=== PATIENT | male | born 1980 | race Caucasian/White ===

== ENCOUNTER 2016-11-03 14:47 | Emergency (ER) | payer BC ==
[2016-11-03 16:18] LABS: Hematocrit 49 % (42-52); Hemoglobin 16.7 g/dl (14.0-18.0); Mean Corpuscular HGB Conc 34 g/dl (31-36); Mean Corpuscular Hemoglobin 30 pg (27-31); Mean Corpuscular Volume 89 fL (80-94); Mean Platelet Volume 9 um3 (7.4-10.4); Red Cell Distribution Width 14 % (10.5-15); White Blood Count 6.2 10^3/ul (3.5-10.8)
[2016-11-03 16:33] LABS: Albumin 4.7 g/dL (3.2-5.2); BUN/Creatinine Ratio 15.6 (8-20); Calcium 10.2 mg/dL (8.6-10.3); EGFR African American 82.7 (>60); EGFR Non-African American 64.3 (>60); Magnesium 2.2 mg/dL (1.9-2.7); Total Bilirubin 0.4 mg/dL (0.2-1.0); Total Protein 7.7 g/dL (6.4-8.9)
[2016-11-03 16:36] LABS: Potassium 4.3 mmol/L (3.5-5.0)
--- NOTE | 2016-11-03 16:49 | RAD ---
INDICATION: Sternal chest pain radiating to the jaw lasting approximately 40 minutes. Recurrent over the past 2 years. COMPARISON: None. TECHNIQUE: Dual energy PA and routine lateral views of the chest were obtained. REPORT: Clear lungs and pleural spaces. Negative for pneumothorax. The heart, pulmonary vasculature, and mediastinal contours are unremarkable. Unremarkable osseous structures and soft tissue contours. IMPRESSION: No evidence for acute intrathoracic disease.
[2016-11-03 16:52] LABS: TSH (Thyroid Stimulating Horm) 3.23 mcIU/mL (0.34-5.60)
[2016-11-03 17:53] LABS: Urine Bilirubin Negative (Negative); Urine Glucose Negative (Negative); Urine Nitrite Negative (Negative)
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
[2016-11-03 18:19] VITALS: BP 140/84
== END 2016-11-03 18:18 | disposition home or self-care (01) ==
LOC: ED 14:47
DX: R07.89 Other chest pain (principal)
CPT/HCPCS: 36415; 71020; 80053; 81003; 83605; 83735; 84443; 84484; 85025; 93005; 99283

== ENCOUNTER 2017-07-20 20:54 | Emergency (ER) | payer BC ==
[2017-07-20] MEDS ORDERED: PROCHLORPERAZINE INJ 5 MG/ML 2 ML VIAL IV ONE (22:26)
[2017-07-20] MEDS ORDERED: NS 0.9% 1000 ML* 1,000 ML IV ONE (22:26)
[2017-07-20] MEDS ORDERED: diPHENhydraMINE IV* 50 MG/ML 1 ml VIAL (BENADRYL) IV ONE (22:26)
[2017-07-20 23:08] LABS: Hematocrit 45 % (42-52); Hemoglobin 15.6 g/dl (14.0-18.0); Mean Corpuscular HGB Conc 35 g/dl (31-36); Mean Corpuscular Hemoglobin 31 pg (27-31); Mean Corpuscular Volume 89 fL (80-94); Mean Platelet Volume 9 um3 (7.4-10.4); Red Blood Count 5.08 10^6/ul (4.0-5.4); Red Cell Distribution Width 13 % (10.5-15); White Blood Count 8.4 10^3/ul (3.5-10.8)
[2017-07-20 23:19] LABS: Albumin 4.3 g/dL (3.2-5.2); BUN/Creatinine Ratio 14.3 (8-20); Calcium 9.2 mg/dL (8.6-10.3); EGFR African American 78.7 (>60); EGFR Non-African American 61.2 (>60); Globulin 2.7 g/dL (2-4); Potassium 3.8 mmol/L (3.5-5.0); Total Bilirubin 0.5 mg/dL (0.2-1.0)
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
[2017-07-21 00:02] LABS: Urine Bilirubin Negative (Negative); Urine Glucose Negative (Negative); Urine Nitrite Negative (Negative)
[2017-07-21] MEDS ORDERED: Ketorolac INJ* 30 MG/ML 1 ML VIAL IV PUSH ONE (00:04)
[2017-07-21] MEDS ORDERED: Ondansetron ODT TAB* 4 MG PO ONE (01:26)
[2017-07-21] MEDS ORDERED: oxyCODONE/Acetamin 5/325 MG* TAB PO ONE (01:26)
[2017-07-21 02:14] VITALS: BP 132/70
--- NOTE | 2017-07-21 10:02 | RAD ---
INDICATION: Headache COMPARISON: None. TECHNIQUE: Contiguous axial sections of the brain were obtained from the skull base to the vertex without contrast. FINDINGS: The ventricles, cisterns and sulci are within normal limits. The ivey-white matter differentiation is adequately maintained and there is no sulcal effacement. No significant focal abnormality or mass effect is present. There is no evidence for intracranial hemorrhage. No significant focal osseous abnormality is present. The visualized portion of the paranasal sinuses and mastoid air cells appear clear. IMPRESSION: Normal CT of the brain.
== END 2017-07-21 02:15 | disposition home or self-care (01) ==
LOC: ED 20:54
DX: R51 Headache (principal); R11.0 Nausea
CPT/HCPCS: 36415; 70450; 80053; 81003; 85025; 85610; 85730; 99284; A9270-GY; J0780; J1200; J1885

== ENCOUNTER 2019-05-13 21:51 | Emergency (ER) | payer BC ==
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
[2019-05-14 01:05] VITALS: BP 124/76
== END 2019-05-14 01:04 | disposition home or self-care (01) ==
LOC: ED 21:51
DX: M54.9 Dorsalgia, unspecified (principal); M79.605 Pain in left leg; V29.88XA Motorcycle rider (driver) (passenger) injured in other specified transport accidents, initial encounter; Y92.9 Unspecified place or not applicable
CPT/HCPCS: 99282